=== PATIENT | female | born 1955 | race Caucasian/White ===

== ENCOUNTER 2023-10-26 13:32 | Outpatient (REF) | payer OTHER, SELFPAY ==
--- NOTE | ~2023-10-26 | US_ITS ---
EXAMINATION: US RETROPERITONEAL COMPLETE (RENAL) CLINICAL INFORMATION: Left flank pain. COMPARISON: None available. TECHNIQUE: Real-time imaging of the kidneys and bladder. FINDINGS: RIGHT KIDNEY: 8.3 x 4.4 x 4.4 cm (SAG x AP x TRV). The kidney is normal in size, contour, and echogenicity. Renal cortical thickness is normal. No calculi or focal parenchymal lesions. No hydronephrosis. LEFT KIDNEY: 8.7 x 4 0.0, 5.1 cm (SAG x AP x TRV). The kidney is normal in size, contour, and echogenicity. Renal cortical thickness is normal. No calculi or focal parenchymal lesions. No hydronephrosis. BLADDER: Well distended and and bladder wall thickening of 3 mm. Bilateral ureteral jets are demonstrated. Prevoid bladder volume is 339 mL. Postvoid bladder volume is 3 mL. Prostate is not imaged US/US retroperitoneal comp IMPRESSION: Unremarkable renal ultrasound. Mild bladder wall thickening measuring 3 mm with no focal lesion or echogenic stones.
== END 2023-10-26 13:33 | disposition home or self-care (01) ==
LOC: HO.UMASIMG 13:32
PROVIDERS: Visit Provider Family Medicine
DX: R35.0 Frequency of micturition (principal)
CPT/HCPCS: 76770

== ENCOUNTER 2024-05-18 09:14 | Outpatient (REF) | payer OTHER, SELFPAY ==
--- NOTE | ~2024-05-18 | US_ITS ---
EXAMINATION: US NECK CLINICAL INFORMATION: Localized left neck swelling in the periauricular region. COMPARISON: None TECHNIQUE: Linear transducer montiel-scale and color Doppler examination with attention to the region of the left neck. FINDINGS: 2 lymph nodes are noted in the left neck in the area of clinical concern measuring 2.1 x 0.4 x 1.0 cm along with a smaller lymph node measuring 0.6 x 0.4 cm. The larger lymph node has a large fatty von and a thin 1.4 mm cortex. An abnormal mass or fluid collections are not seen. US/US soft tiss head and/or neck IMPRESSION: Benign-appearing lymph nodes in the area of clinical concern. Electronically signed by: Mando Moss MD 05/18/2024 03:47 PM EDT
== END 2024-05-18 09:15 | disposition home or self-care (01) ==
LOC: HO.UMASIMG 09:14
PROVIDERS: Visit Provider Nurse Practitioner
DX: R22.1 Localized swelling, mass and lump, neck (principal)
CPT/HCPCS: 76536